=== PATIENT | male | born 1995 | race Caucasian/White ===

== ENCOUNTER 2024-12-02 13:09 | Emergency (ER) | payer SELFPAY ==
[2024-12-02 13:13] VITALS: PULSE 76; RESP 17; O2SAT 98
[2024-12-02 13:15] VITALS: BP 115/80; PULSE 73; RESP 17; TEMP 37.1; O2SAT 96; BMI 21.5
--- NOTE | 2024-12-02 13:53 | ED_ITS ---
Discharge Plan Disposition Patient Disposition: Home, Self-Care Condition: Good Referrals Follow up/Referrals: Eagle Waite MD [Physician, Ear, Nose, Throat] - See instructions Referral Note: Possible epidermoid inclusion cyst of ear lobe Provider,Referral, [Primary Care Provider, Medical] - See instructions Activity Restrictions/Add. Instructions Additional Instructions/Restrictions: I have attached a referral to ENT for further surgical evaluation of this cyst on your ear. You will have to call Dr. Waite's office to schedule an appointment and get evaluated. If you have any new or worsening symptoms please return. Clinical Impressions Clinical Impression: Cyst on ear Stand Alone Forms Stand Alone Forms: Work/School Release Instructions Patient Instructions: DI for Epidermal Cyst Print Language Print Language: [place] Discharge ED Provider: Boubacar Mendoza Adult HPI General Chief complaint: Skin/Abscess/Foreign Body Stated complaint: L Ear Cyst Time Seen by Provider: 12/02/24 13:14 Mode of Arrival: Ambulatory Source of Information: Patient Description of Symptoms (Recalled from ER Triage Doc. by RN): Patient presents to ED with c/o a cyst behind his left ear, reports it has been there x2 years. C/O pain and sensitivity to area. History of Present Illness HPI narrative: This is a 29-year-old male patient, with no reported past medical history or daily medications, who is presenting to the emergency department today for evaluation of a cyst on the posterior aspect of the lobule of the left ear. The patient states that this cyst initially appeared 2 years ago and he was evaluated at [facility] where they performed an incision and drainage. He did not have recurrence of the cyst over the course of the last 2 years, however over the course of the last several weeks this cyst has begun to reappear and enlarge. He does not report any infectious symptoms such as fevers, purulent drainage, or streaking erythema about the ear. He is specifically requesting the cyst to be drained because it is enlarging and is causing him discomfort in the ear. He has not had any hearing difficulties. No headaches. No vision changes. No traumatic injuries to the ear Related Data Allergies Allergy/AdvReac Type Severity Reaction Status Date / Time No Known Allergies Allergy Verified 12/02/24 13:32 [facility] Disclaimer: The information contained in this section may have been updated after the patient was seen, as this information can be updated by other users. Social History Smoking Status: Current every day smoker alcohol intake: never current occupational status: other Travel in the last 8 weeks?: None ROS Obtained: Yes Systems reviewed as appropriate & no additional complaints ex cept as documented Physical Exam General General appearance: alert and in no apparent distress Head Head exam: atraumatic and normocephalic Eye Eye exam: Present PERRL and EOMI ENT ENT exam: Present normal oropharynx, mucous membranes moist and other (Cystic lesion on the posterior aspect of the left ear) Neck Neck exam: Present full ROM and trachea midline Respiratory Respiratory exam: Present normal lung sounds bilaterally; Absent respiratory distress Cardiovascular Cardiovascular exam: Present regular rate and normal rhythm Abdominal Exam Abdominal exam: Present soft; Absent tenderness Extremities Exam Extremities exam: Present normal inspection; Absent tenderness Back Exam Back exam: Absent vertebral tenderness Neurological Exam Neurological exam: Present alert and oriented X3 Skin Skin exam: Present warm and dry Medical Decision Making Medical Records Medical records reviewed: Yes I reviewed the patient's medical records. Screening: Per USPSTF and CDC recommendations, given the prevalence of disease in our region, it is our hospital?s policy to screen for HIV and viral Hepatitis for all patients aged 18 and over and those with ongoing risk factors. Bipin Inquiry Pt receiving controlled substance: No Bipin was queried for this patient: No Vital Signs: 12/02/24 13:13 12/02/24 13:15 Temperature 98.7 F Temperature Source Oral Pulse Rate 76 Pulse Rate [Left] 73 Respiratory Rate 17 17 Blood Pressure [Right Arm] 115/80 Blood Pressure Mean [Right Arm] 91 Blood Pressure Source [Right Arm] Automatic Cuff 02 Sat by Pulse Oximetry 98 96 Oxygen Delivery Method Room Air Room Air Orders (Tests/Meds): ORDERS Category Date Time Status POCUS Point of Care (ER Only) Stat Exams 12/02/24 13:35 Taken Medical Decision Narrative: In summary, this is a 29-year-old male patient, with no significant past medical history or daily medications, who is presenting to the emergency department for a recurrent cyst on the posterior aspect of the lobule of the left ear. On initial evaluation of the patient they were resting comfortably in no acute distress and nontoxic in appearance. They are hemodynamically stable, saturating well room air, and are neurologically intact. On further physical examination there is a cystic appearing lesion on the posterior aspect of the lateral that is fluctuant and based off of palpatory exam feels to be fluid-filled. There is no erythema and there is no obvious drainage from the ear. This does not appear to be an overtly infectious lesion. Differential diagnosis includes epidermoid cyst, sebaceous cyst, among others. I have a very low suspicion for abscess at this time given my exam listed above. I did perform a focused assessment of the patient's ear. Please see procedure note below for details. In summary, this lesion does not have the typical anechoic appearance of fluid that would be expected by fluid-filled cyst. Instead it has the appearance of heterogenous tissue that would be expected of an epidermoid inclusion cyst. Given the fact that this is a recurrent lesion and I have a suspicion for an epidermoid cyst that likely has a capsule, I feel that he would be more appropriately served to be evaluated by a surgeon They could remove both the cyst and the capsule should 1 be there. We will give the patient a referral to ENT with Dr. Waite and have him follow-up with them for further evaluation of the cyst. At this time all questions have and answered and all parties are agreeable with the decision to discharge home. Limited soft tissue ultrasound Indication: Cystic lesion on left earlobe Identified structures: Earlobe Location: Posterior aspect of lobule of left ear Findings: Heterogenous appearing cystic lesion measuring 1.23 x 2 cm on the posterior aspect of the left earlobe Impression: Possible epidermal inclusion cyst versus sebaceous cyst of earlobe Images were saved to permanent archive This study was technically adequate Soft tissue CPT codes Neck: 87070-12 Upper extremity: 31542?26 Axilla: 27279-71 Chest wall: 52187-78 Breast: 7664 1-2 6 (complete), 34412-92-[RT/LT] (Limited) Upper back: 99202-54 Abdominal wall: 10603-82 Pelvic wall: 67397-20 Lower extremity: 55134-51 Other soft tissue: 33253-94 This study was performed by me and I personally interpreted all images/videos. Based on my clinical judgment these images were adequate and did not necessitate further imaging. Critical Care Critical Care Time Critical Care Time: No
[2024-12-02 14:57] VITALS: BP 115/80; PULSE 73; PULSE 74; RESP 19; TEMP 37.1; O2SAT 98
== END 2024-12-02 14:58 | disposition home or self-care (01) ==
PROVIDERS: Emergency Provider Student in an Organized Health Care Education/Training Program
DX: L72.0 Epidermal cyst (principal); F17.210 Nicotine dependence, cigarettes, uncomplicated
CPT/HCPCS: 99284

== ENCOUNTER 2025-02-14 06:05 | Emergency (ER) | payer OTHER, SELFPAY ==
[2025-02-14 06:11] VITALS: BP 126/92; PULSE 79; RESP 16; TEMP 36.5; O2SAT 100; BMI 21.5
[2025-02-14] MEDS: LIDOCAINE 1% 5ML PF VIAL 2 ML IJ (06:30)
--- NOTE | 2025-02-14 06:38 | ED_ITS ---
Discharge Plan Disposition Patient Disposition: Home, Self-Care Condition: Good Referrals Follow up/Referrals: Provider,Referral, [Primary Care Provider, Medical] - See instructions Activity Restrictions/Add. Instructions Additional Instructions/Restrictions: You were evaluated in the ER and are believed to be appropriate for discharge at this time. Make an appointment with your primary care doctor for reevaluation. Return to the ER with any new, worsening, or otherwise concerning symptoms. Clinical Impressions Clinical Impression: Foreign body of ear, right Instructions Patient Instructions: DI for Skin Abscess Print Language Print Language: Cam[place]onian Discharge ED Provider: Amber Solares General Adult HPI General Chief complaint: Skin/Abscess/Foreign Body Stated complaint: poss. bug in right ear Time Seen by Provider: 02/14/25 06:12 Mode of Arrival: Ambulatory Source of Information: Patient Description of Symptoms (Recalled from ER Triage Doc. by RN): Patient feels like a bug is in his right ear; states he can hear it flapping; denies any drug use History of Present Illness HPI narrative: Otherwise healthy 30-year-old male presents to the ER complaining of sensation of a bug in the right ear. Patient felt something crawling on his right ear when he was driving earlier and rubbed the right ear and felt something go into it. He states he can hear it flapping against the eardrum. No other complaints or concerns Related Data Allergies Allergy/AdvReac Type Severity Reaction Status Date / Time No Known Allergies Allergy Verified 12/02/24 13:32 [facility] Disclaimer: The information contained in this section may have been updated after the patient was seen, as this information can be updated by other users. Social History (Updated 12/02/24 @ 14:50 by Boubacar Mendoza DO) Smoking Status: Current every day smoker alcohol intake: never current occupational status: other Travel in the last 8 weeks?: None Have you lived/traveled outside US in past 30 days?: No Contact w/someone who lives/traveled outside US past 30 days?: No Exposure to someone with infectious disease in past 14 days?: No Do you have a fever (greater than 100.4 F or 38 C)?: No Have you tested positive for COVID-19?: No Exposed to someone with COVID-19 in past 14 days?: No Do you have a sore throat?: No Do you have a cough?: No Do you have any weakness?: No Do you have any diarrhea?: No Are you experiencing any unusual bleeding?: No Do you have any muscle aches/pain?: No Do you have any abdominal pain?: No Are you experiencing loss of taste or smell?: No ROS Obtained: Yes Systems reviewed as appropriate & no additional complaints except as documented Per HPI Physical Exam General General appearance: alert and in no apparent distress Head Head exam: atraumatic and normocephalic Eye Eye exam: Present PERRL and EOMI ENT ENT exam: Present mucous membranes moist and other (Tympanic membrane are normal-appearing bilaterally but there is a small white moth in the right ear) Neck Neck exam: Present normal inspection and full ROM Chest Chest inspection: Present symmetric chest wall rise Respiratory Respiratory exam: Absent respiratory distress or stridor Cardiovascular Cardiovascular exam: Present regular rate and normal rhythm Neurological Exam Neurological exam: Present alert and oriented X3 Psychiatric Psychiatric exam: Present normal affect and normal mood Skin Skin exam: Present warm and dry Medical Decision Making Medical Records Medical records reviewed: Yes I reviewed the patient's medical records. Screening: Per USPSTF and CDC recommendations, given the prevalence of disease in our region, it is our hospital?s policy to screen for HIV and viral Hepatitis for all patients aged 18 and over and those with ongoing risk factors. Bipin Inquiry Pt receiving controlled substance: No Vital Signs: 02/14/25 06:11 Temperature 97.7 F Temperature Source Oral Pulse Rate [Right Radial] 79 Respiratory Rate 16 Blood Pressure [Right Arm] 126/92 H Blood Pressure Mean [Right Arm] 103 Blood Pressure Source [Right Arm] Automatic Cuff Blood Pressure Position [Right Arm] Sitting 02 Sat by Pulse Oximetry 100 Oxygen Delivery Method Room Air Orders (Tests/Meds): ED MEDICATIONS Discontinued Medications Generic Name Dose Route Start Last Admin Trade Name Freq PRN Reason Stop Dose Admin Lidocaine HCl 2 ml 02/14/25 06:27 02/14/25 06:30 Lidocaine 1% 5ml Pf Vial IJ 02/14/25 06:28 2 ml ONCE ONE Administration Medical Decision Narrative: In summary, otherwise healthy 30-year-old male presents to the ER complaining of bug in the right ear. On evaluation patient does indeed have a small white moth in the right ear. There does not appear to be any injury to the ear canal or eardrum though these were considered on my differential. Lidocaine was put into the ear to kill the moth. I was able to flush the moth from the right ear using saline. See procedure note for details. On reexamination of the right ear the canal and tympanic membrane do not demonstrate any findings of injury or irritation. Patient is appropriate for discharge at this time. Patient was given instructions on symptomatic management, follow up instructions, and return precautions for the emergency department. Patient indicated understanding and was discharged in stable condition. Procedures Foreign Body Removal Time Out Performed: Yes Site: right and ear Description of foreign body: insect Sedation/Analgesia: none Technique: irrigation (Normal saline flushes) Confirmed by:: direct visualization Complications: none Post-procedure exam: awake, alert, normal BP, normal HR and normal O2 sat Neurovascular: no change from pre-procedure Critical Care Critical Care Time Critical Care Time: No
[2025-02-14 06:40] VITALS: BP 126/79; PULSE 92; RESP 14; TEMP 36.6; O2SAT 97
== END 2025-02-14 06:42 | disposition home or self-care (01) ==
PROVIDERS: Emergency Provider Emergency Medicine
DX: T16.1XXA Foreign body in right ear, initial encounter (principal); W44.F4XA Insect entering into or through a natural orifice, initial encounter
CPT/HCPCS: 69200; 99283; J2003

== ENCOUNTER 2025-04-11 10:43 | Emergency (ER) | payer OTHER, SELFPAY ==
[2025-04-11 10:50] VITALS: BP 133/74; PULSE 91; RESP 16; TEMP 36.8; O2SAT 99; BMI 20.9
[2025-04-11 10:55] LABS: Coronavirus 19, PCR Not Detected (NotDetected); Influenza A, PCR Not Detected (NotDetected); Influenza B, PCR Not Detected (NotDetected)
--- NOTE | 2025-04-11 10:59 | ED_ITS ---
<Statement entered by Kassie Parra MD - 04/11/25 14:52> I was consulted by the MICHAEL, and we discussed the complexity of the problems being addressed. I approved the treatment and management plan for this patient's care in the emergency department, thus performing a substantive portion of the medical decision making. Kassie Parra MD, HOPE, FACEP Discharge Plan Disposition Patient Disposition: Home, Self-Care Condition: Good Prescriptions Prescriptions: New ondansetron 4 mg tablet,disintegrating 4 mg PO Q6H PRN (Reason: nausea and vomiting) Qty: 10 0RF Referrals Follow up/Referrals: Provider,Referral, MD [Referring, Medical] - See instructions Activity Restrictions/Add. Instructions Additional Instructions/Restrictions: Please return to the emergency department any worsening signs or symptoms, please utilize [id number] cold flu medication as needed for symptomatic leaf, please use antinausea medicine as needed for symptomatic relief. Please follow-up with your family doctor in the upcoming days/weeks. Clinical Impressions Clinical Impression: Viral syndrome, Nausea & vomiting Instructions Patient Instructions: DI for Viral Syndrome Print Language Print Language: Citizen Of [place] Discharge ED Provider: Kassie Parra General Adult HPI General Chief complaint: Sore Throat Stated complaint: sore throat, vomiting Time Seen by Provider: 04/11/25 10:52 Mode of Arrival: Ambulatory Source of Information: Patient Description of Symptoms (Recalled from ER Triage Doc. by RN): Patient states he has had sore throat and vomiting that started last night. Patient denies fever or diarrhea History of Present Illness HPI narrative: 30-year-old male presents the emergency department with sore throat, subjective fever chills, nonproductive cough, congestion, episode of nausea vomiting that started last night, denies any overt diarrhea denies any abdominal pain, denies any chest pain or shortness of breath, no known sick contacts, denies any urinary symptomatology, patient is a current everyday smoker, denies any alcohol or other drug use, patient has no other real relevant past medical history takes no other medications daily at home patient does tell me he has a heart murmur . This is however data deficient. Initial triage vitals are unremarkable. Please note that above description of symptoms, in this electronic medical record under categorization of recalled from ER triage doctor by RN are reflective of an initial nursing assessment, however, is not reflective of my full history and physical exam that was personally taken and clarified. Consequentially, this preceding description of symptoms, which may include the patient's categorized chief complaint in the EMR, do not reflect my personal clinical impression, and the ultimate description of history of present illness and patient stated complaints should be deferred to this section of the note. Unless stated otherwise or congruent with this section of the note, additional signs, symptoms, or incongruence should be interpreted as inaccurate with my clinical impression. Onset (ago): hour(s) Related Data Previous Rx's ?Medication ?Instructions ?Recorded ondansetron 4 mg disintegrating 4 mg PO Q6H PRN nausea and 04/11/25 tablet vomiting #10 tabs Allergies Allergy/AdvReac Type Severity Reaction Status Date / Time No Known Allergies Allergy Verified 04/11/25 10:59 [facility] Disclaimer: The information contained in this section may have been updated after the patient was seen, as this information can be updated by other users. Social History (Updated 12/02/24 @ 14:50 by Boubacar Mendoza DO) Smoking Status: Current every day smoker alcohol intake: never current occupational status: other Travel in the last 8 weeks?: None Have you lived/traveled outside US in past 30 days?: No Contact w/someone who lives/traveled outside US past 30 days?: No Exposure to someone with infectious disease in past 14 days?: No Do you have a fever (greater than 100.4 F or 38 C)?: No Have you tested positive for COVID-19?: No Exposed to someone with COVID-19 in past 14 days?: No Do you have a sore throat?: No Do you have a cough?: No Do you have any weakness?: No Do you have any diarrhea?: No Are you experiencing any unusual bleeding?: No Do you have any muscle aches/pain?: No Do you have any abdominal pain?: No Are you experiencing loss of taste or smell?: No ROS Obtained: Yes All systems reviewed & no additional complaints except as documented Physical Exam General General appearance: alert and in no apparent distress Head Head exam: atraumatic and normocephalic Eye Eye exam: Present PERRL and EOMI ENT ENT exam: Present mucous membranes moist and other (Minimal erythema of the posterior oropharynx, no posterior oropharyngeal edema, uvula midline, no evidence of any peritonsillar abscess formation, no tonsillar exudate); Absent normal oropharynx Neck Neck exam: Present normal inspection Chest Chest inspection: Present normal inspection and symmetric chest wall rise Respiratory Respiratory exam: Present normal lung sounds bilaterally; Absent respiratory distress Cardiovascular Cardiovascular exam: Present regular rate and normal rhythm Abdominal Exam Abdominal exam: Present soft; Absent tenderness, guarding, rebound or rigidity Extremities Exam Extremities exam: Present normal inspection Neurological Exam Neurological exam: Present alert and oriented X3 Psychiatric Psychiatric exam: Present normal affect Skin Skin exam: Present warm and dry Medical Decision Making Medical Records Medical records reviewed: Yes I reviewed the patient's medical records. Screening: Per USPSTF and CDC recommendations, given the prevalence of disease in our region, it is our hospital?s policy to screen for HIV and viral Hepatitis for all patients aged 18 and over and those with ongoing risk factors. Bipin Inquiry Pt receiving controlled substance: No Bipin was queried for this patient: No Vital Signs: 04/11/25 10:50 Temperature 98.2 F Temperature Source Oral Pulse Rate [Right Brachial] 91 H Respiratory Rate 16 Blood Pressure [Right Arm] 133/74 Blood Pressure Mean [Right Arm] 93 Blood Pressure Source [Right Arm] Automatic Cuff Blood Pressure Position [Right Arm] Sitting 02 Sat by Pulse Oximetry 99 Oxygen Delivery Method Room Air Lab Data Lab Results 04/11/25 10:48: SARS-CoV-2 (PCR) Not detected, Influenza A Untype (PCR) Not detected, Influenza Type B (PCR) Not detected, Group A Strep Rapid Negative Orders (Tests/Meds): ED MEDICATIONS Discontinued Medications Generic Name Dose Route Start Last Admin Trade Name Freq PRN Reason Stop Dose Admin Ondansetron HCl 4 mg 04/11/25 11:04 04/11/25 11:14 Ondansetron 4mg Odt SL 04/11/25 11:05 4 mg ONCE ONE Administration ORDERS Category Date Time Status Rapid PCR Covid and Flu A/B Stat Lab 04/11/25 10:48 Completed Strep Scrn Group A (Rapid) Stat Lab 04/11/25 10:48 Completed Strep Screen Confirmation Stat Micro 04/11/25 10:48 Received Medical Decision Narrative: 30-year-old male presents to the emergency department with sore throat subjective fever chills episode of nausea and vomiting last night differential diagnose include but not limited to gastroenteritis, acute URI, acute bronchitis, streptococcal pharyngitis, viral pharyngitis among others I discussed this patient's case with attending physician Dr. Parra I offered laboratory studies and full workup to the patient the bedside, patient denied at this time, shared decision making is utilized, he would like to pursue swabs and p.o. medications I think this is appropriate as patient is hemodynamically stable, no clinical signs or symptoms of hypovolemia, he has no dry mucous membranes, no other acute signs or symptoms unless stated in the HPI. Thus we will obtain rapid antigen swabs for COVID and flu as well as strep, and will treat the patient's nausea with 4 mg p.o. sublingual Zofran. Group A rapid strep is negative COVID-19 negative influenza is negative via PCR. I discussed the results with the patient at the bedside patient is resting comfortably in bed, no other acute symptomatology, I will prescribe the patient 4 mg p.o. sublingual Zofran as needed for nausea and vomiting. Recommend [id number] cold flu medications for symptomatic relief. Patient was given strict ED return precautions to follow-up with PCP and other providers in the upcoming days and return to the emergency room with any worsening signs or symptoms. Critical Care Critical Care Time Critical Care Time: No
[2025-04-11 11:09] LABS: Strep Scrn Group A (Rapid) Negative (Negative)
[2025-04-11] MEDS: ONDANSETRON 4MG ODT 4 MG SL (11:14)
[2025-04-11 11:57] VITALS: BP 108/63; PULSE 92; RESP 16; TEMP 36.6; O2SAT 98
== END 2025-04-11 11:58 | disposition home or self-care (01) ==
PROVIDERS: Physician Assistant; Emergency Provider Student in an Organized Health Care Education/Training Program; PCP Internal Medicine Adolescent Medicine
DX: R11.2 Nausea with vomiting, unspecified (principal); R07.0 Pain in throat; B34.9 Viral infection, unspecified
CPT/HCPCS: 87430; 87636; 99283; Q0162